=== PATIENT | male | born 1950 | race Caucasian/White ===

== ENCOUNTER → 2021-02-03 | Day surgery (SDC) | payer OTHER, MEDICARE ==
[2021-02-02 11:07] VITALS: BMI 23.8
[2021-02-03 12:11] VITALS: TEMP 98.1
[2021-02-03 12:43] VITALS: BP 121/64; PULSE 61
== END | disposition home or self-care (01) ==
LOC: JASU-ENDO 05:26
PROVIDERS: ATTEND Internal Medicine Gastroenterology
PROC: 0DBP8ZX Excision of Rectum, Via Natural or Artificial Opening Endoscopic, Diagnostic (ICD-10-PCS; principal; 2021-02-03 11:45)
DX: K62.7 Radiation proctitis (principal); K52.89 Other specified noninfective gastroenteritis and colitis; K57.30 Diverticulosis of large intestine without perforation or abscess without bleeding; K92.1 Melena

== ENCOUNTER 2023-01-28 19:54 | Emergency (ER) | payer OTHER, MEDICARE ==
[2023-01-28 20:04] VITALS: BP 142/84; PULSE 73; RESP 16; TEMP 98.2; BMI 22.4
[2023-01-28] MEDS ORDERED: DIPHTH,PERTUSS(ACELL),TET 0.5 ML DISP.SYRIN IM ONE ×2 (20:28→20:31)
== END 2023-01-28 20:37 | disposition home or self-care (01) ==
LOC: FER 19:54
PROC: 0XQCXZZ Repair Left Elbow Region, External Approach (ICD-10-PCS; principal; 2023-01-28)
PROC: 3E0234Z Introduction of Serum, Toxoid and Vaccine into Muscle, Percutaneous Approach (ICD-10-PCS; 2023-01-28)
DX: S61.211A Laceration without foreign body of left index finger without damage to nail, initial encounter (principal); W26.0XXA Contact with knife, initial encounter
CPT/HCPCS: 12001-25; 90471; 90715; 99284-25